=== PATIENT | female | born 1955 | race Caucasian/White ===

== ENCOUNTER 2016-12-03 13:36 | Emergency (ER) | payer MEDICARE, OTHER ==
[2016-12-03 14:09] VITALS: BP 175/63
[2016-12-03 15:14] LABS: CHLORIDE,CL 103 mmol/L (98-107); SODIUM,NA 140 mmol/L (136-145)
[2016-12-03] MEDS ORDERED: Sodium Chloride 0.9% 10 ML Syringe FLUSH PRN (16:28)
[2016-12-03] MEDS ORDERED: Sodium Chloride 0.9% 1,000 ML IV ONE (16:30)
[2016-12-03] MEDS ORDERED: cefTRIAXone 1 GM Vial IVPUSH ONE (16:31)
--- NOTE | 2016-12-04 03:18 | ER ---
Date of Service: 12/03/2016 SUBJECTIVE: Silvia presents to emergency room with complaints of "not feeling well." The patient states that she has also been experiencing some weakness. She has not been experiencing any chest pain or shortness of breath. She recently changed to a different insulin pump, but states that she checked her blood sugar prior to coming to the emergency room and it was 132. She denies any focal neuro symptoms such as numbness or tingling in her extremities, difficulties with speech or ambulation. Her primary complaint is that she just does not "feel right." PAST MEDICAL HISTORY: 1. Type 2 diabetes mellitus. 2. Stage 3 chronic kidney disease. 3. Hypertension. 4. Anxiety. 5. Depression. 6. Chronic pain syndrome. 7. Vitamin D deficiency. 8. Dyslipidemia. MEDICATIONS: 1. Amlodipine. 2. Coenzyme Q10. 3. Pravachol. 4. Nitrostat. 5. Metoprolol tartrate. 6. Cozaar. 7. Lisinopril/hydrochlorothiazide. 8. Humalog. 9. [place]. 10.Hydrochlorothiazide. 11.Docusate sodium. 12.Vitamin D3. 13.Aspirin. 14.Alprazolam. ALLERGIES: Nifedipine, valsartan, and VARGAS inhibitors. REVIEW OF SYSTEMS: General: No fever or chills. HEENT: No sore throat, rhinorrhea, or congestion. Respiratory: No shortness of breath. Cardiac: Denies any substernal chest pain. No jaw, arm, neck, or back pain. GI: No nausea, vomiting, or diarrhea. No melena, hematochezia, or hematemesis. : Denies any dysuria. Musculoskeletal: No myalgias or arthralgias. Neurologic: No fainting, blackouts, or lightheadedness. Again, she does complain of global weakness. PHYSICAL EXAMINATION: General: This is a 61-year-old female patient in no acute distress. Vital Signs: Initially, blood pressure was 175/63, temperature was 36.8, pulse rate is 73, respiratory rate 20, O2 saturations 100%. Skin: Warm, pink, and dry. HEENT. Head is normocephalic, atraumatic. Eyes, PERRLA. Extraocular movements are intact. Ears, TMs are clear. Mouth, oral mucosa is moist. No erythema or exudate noted in the hypopharynx. Neck: Supple. No masses. There is no lymphadenopathy. Lungs: Clear to auscultation. Heart: Regular rate and rhythm. Abdomen: Soft, nontender. There is no hepatosplenomegaly noted. There is no masses noted. Extremities: Without edema. Neurologic: She is alert and oriented, answers all questions appropriately. Her speech is fluent. Her gait is within normal limits. LABORATORY DATA: WBC is 7.3, hemoglobin is 11.3, platelets are 312. Chemistry, sodium is 140, potassium is 4.8, chloride is 103, bicarb is 27, BUN is 31, creatinine is 1.8. GFR is 28. Glucose is 175. Lactic acid is 1.4. Calcium is 9.6, corrected calcium is 9.76. Magnesium is 1.6. Total bilirubin is 0.3. Liver enzymes are all within normal limits. Troponin is less than 0.017. CK-MB is 1.8. C-reactive protein is 2.2. TSH is 0.814. Urinalysis reveals small leukocyte esterase, negative for protein, glucose, ketones, occult blood, negative for nitrites. EMERGENCY ROOM COURSE: IV access was established. The patient was given 1 liter of normal saline. She was also given 1 g of Rocephin IV. She remained stable in my care in the emergency room. ASSESSMENT: 1. Urinary tract infection. 2. Stage 3 chronic kidney disease. PLAN: I did discuss this patient with Chayito Miguel. She did miss her appointment at the clinic yesterday. She was advised to follow up in the clinic within the next 10 to 14 days. She was started on Bactrim DS 1 twice daily for 10 days. Again, she did receive a dose of Rocephin here in the emergency room tonight, so she will not need to fill her prescription till tomorrow. All questions were answered. MWK: 12/03/2016 18:09:39 MODL: 12/04/2016 03:12:02 /[id number]
== END 2016-12-03 18:10 | disposition home or self-care (01) ==
LOC: VM.ED 13:36 → SUPCPDRO 13:36 → VM.ED 18:10
DX: N39.0 Urinary tract infection, site not specified (principal); E11.22 Type 2 diabetes mellitus with diabetic chronic kidney disease; I12.9 Hypertensive chronic kidney disease with stage 1 through stage 4 chronic kidney disease, or unspecified chronic kidney disease; N18.3 Chronic kidney disease, stage 3 (moderate); F41.9 Anxiety disorder, unspecified; F33.9 Major depressive disorder, recurrent, unspecified; G89.4 Chronic pain syndrome; E55.9 Vitamin D deficiency, unspecified; Z96.41 Presence of insulin pump (external) (internal); E78.5 Hyperlipidemia, unspecified; Z79.899 Other long term (current) drug therapy; Z79.4 Long term (current) use of insulin; Z79.82 Long term (current) use of aspirin; Z88.8 Allergy status to other drugs, medicaments and biological substances
CPT/HCPCS: 36415; 71020; 80053; 81001; 82550; 82553; 82962; 83605; 83735; 84443; 84484; 85025; 86140; 87040; 87804; 93005; 96361; 96374; 99285; J0696; J7030; 99284-GF

== ENCOUNTER 2018-01-14 08:30 | Emergency (ER) | payer MEDICARE, OTHER ==
[2018-01-14 08:40] VITALS: BP 172/53
--- NOTE | 2018-01-15 12:32 | EDM.PDOC ---
ED HPI GENERAL MEDICAL PROBLEM - General Chief Complaint: Trauma Stated Complaint: fall Time Seen by Provider: 01/14/18 08:40 Source of Information: Reports: Patient History Limitations: Reports: No Limitations - History of Present Illness INITIAL COMMENTS - FREE TEXT/NARRATIVE: Pt. presents to ER with complaints of lower extremity pain post fall. Pt. states that she fell while walking down some stairs at her [employer]. She did not strike her head when she fell. She complains of pain in her R thigh and both of her lower legs as well as her Onset Date: 01/14/18 Duration: Constant, Getting Worse Location: Reports: Lower Extremity, Left, Lower Extremity, Right Quality: Reports: Ache Severity: Severe Improves with: Reports: Rest Worsens with: Reports: Movement Bilateral Pain Score (Numeric/FACES): 7 - Related Data Allergies Allergy/AdvReac Type Severity Reaction Status Date / Time nifedipine [From Procardia] Allergy Mild Edema Verified 08/22/17 09:23 valsartan [From Diovan] Allergy Mild Cough Verified 08/22/17 09:23 VARGAS Inhibitors Allergy Cannot Verified 08/22/17 09:23 Remember Home Meds: Home Meds ALPRAZolam [Xanax] 0.5 - 1 mg PO BEDTIME PRN 10/11/13 [History] Aspirin [Ecotrin] 325 mg PO DAILY 10/11/13 [History] Cholecalciferol (Vitamin D3) [D-2000] 4,000 unit PO DAILY 10/11/13 [History] Docusate Sodium [Dok] 250 mg PO DAILY 10/11/13 [History] Hydrocodone/Acetaminophen [[place] 10-325] 1 tab PO Q4H PRN 10/11/13 [History] Insulin Lispro [HumaLOG] 100 units IP DAILY 10/11/13 [History] Metoprolol Tartrate 200 mg PO DAILY 10/11/13 [History] Nitroglycerin [Nitrostat] 0.4 mg SL ASDIRECTED PRN 10/11/13 [History] ALPRAZolam [Xanax] 08/22/17 [History] Clopidogrel [Plavix] 08/22/17 [History] Furosemide [Lasix] 08/22/17 [History] Nitrofurantoin Monohyd/M-Cryst [Macrobid 100 mg Capsule] 1 cap PO BID 7 Days # 14 capsule 08/22/17 [Rx] hydrALAZINE [Apresoline] 08/22/17 [History] Past Medical History HEENT History: Reports: Other (See Below) Other HEENT History: diabetic retinopathy Cardiovascular History: Reports: High Cholesterol, Hypertension, GA, Stents Genitourinary History: Reports: Other (See Below) Other Genitourinary History: CKD Neurological History: Reports: Neuropathy, Diabetic Psychiatric History: Reports: Anxiety Endocrine/Metabolic History: Reports: Diabetes, Type I Oncologic (Cancer) History: Reports: Breast - Past Surgical History HEENT Surgical History: Reports: Cataract Surgery Cardiovascular Surgical History: Reports: Coronary Artery Bypass Female Surgical History: Reports: Tubal Ligation Musculoskeletal Surgical History: Reports: Shoulder Surgery Social & Family History - Family History Family Medical History: Noncontributory - Tobacco Use Smoking Status *Q: Unknown Ever Smoked Second Hand Smoke Exposure: No - Caffeine Use Caffeine Use: Reports: None, Soda - Alcohol Use Days Per Week of Alcohol Use: 0 - Recreational Drug Use Recreational Drug Use: No ED ROS GENERAL - Review of Systems Review Of Systems: See Below Constitutional: Reports: No Symptoms HEENT: Reports: No Symptoms Respiratory: Reports: No Symptoms Cardiovascular: Reports: No Symptoms Endocrine: Reports: No Symptoms GI/Abdominal: Reports: No Symptoms : Reports: No Symptoms Musculoskeletal: Reports: Leg Pain Skin: Reports: No Symptoms Neurological: Reports: No Symptoms Psychiatric: Reports: No Symptoms Hematologic/Lymphatic: Reports: No Symptoms Immunologic: Reports: No Symptoms ED EXAM, GENERAL - Physical Exam Exam: See Below Exam Limited By: No Limitations General Appearance: Alert, WD/WN, No Apparent Distress Eye Exam: Bilateral Eye: EOMI, Normal Fundi, Normal Inspection, PERRL Ears: Normal External Exam, Normal Canal, Hearing Grossly Normal, Normal TMs Ear Exam: Bilateral Ear: Auricle Normal, Canal Normal, TM normal Nose: Normal Inspection, Normal Mucosa, No Blood Throat/Mouth: Normal Inspection, Normal Lips, Normal Teeth, Normal Gums, Normal Oropharynx, Normal Voice, No Airway Compromise Head: Atraumatic, Normocephalic Neck: Normal Inspection, Supple, Non-Tender, Full Range of Motion Respiratory/Chest: No Respiratory Distress, Lungs Clear, Normal Breath Sounds, No Accessory Muscle Use, Chest Non-Tender Cardiovascular: Normal Peripheral Pulses, Regular Rate, Rhythm, No Edema, No Gallop, No JVD, No Murmur, No Rub Peripheral Pulses: 4+: Radial (L), Radial (R) GI/Abdominal: Normal Bowel Sounds, Soft, Non-Tender, No Organomegaly, No Distention, No Abnormal Bruit, No Mass (Female) Exam: Deferred Rectal (Female) Exam: Deferred Back Exam: Normal Inspection, Full Range of Motion, NT Extremities: Leg Pain, Limited Range of Motion, Other (Pain to lower legs bilaterally. No deformity or crepitus noted. Pain on movement R ankle. No deformity noted. ROM is normal. No crepitus. Pain to mid portion of R femur. No hip pain. No ecchymosis noted to legs. No deformity or crepitus. Cap. refill is <2sec. Able to bear weight. No shortening or rotation to the legs.) Neurological: Alert, Oriented, CN II-XII Intact, Normal Cognition, Normal Gait, Normal Reflexes, No Motor/Sensory Deficits Psychiatric: Normal Affect, Normal Mood Skin Exam: Warm, Dry, Intact, Normal Color, No Rash Lymphatic: No Adenopathy Course - Vital Signs Last Recorded V/S: Last Vital Signs Temp 37.3 C 01/14/18 08:37 Pulse 66 01/14/18 08:37 Resp 20 01/14/18 08:37 BP 172/53 H 01/14/18 08:37 Pulse Ox 96 01/14/18 08:37 - Radiology Interpretation Free Text/Narrative:: radiographs of bilateral tibia and fibula are negative. radiographs of R femur and R ankle are negative Departure - Departure Time of Disposition: 10:25 Disposition: Home, Self-Care 01 Clinical Impression: Right ankle sprain, Contusion of thigh, right, Lower leg soft tissue injury - Discharge Information Instructions: Contusion, [id number] Referrals: Chayito Miguel DO [Primary Care Provider] - Forms: ED Department Discharge Additional Instructions: Home to rest. May use ice or heat on painful areas. Use your [place] as needed for pain. It is important to stay up and walking as much as possible. Follow-up in clinic in 7-10 days if not gradually improving.
== END 2018-01-14 10:25 | disposition home or self-care (01) ==
LOC: VM.ED 08:30
DX: S93.401A Sprain of unspecified ligament of right ankle, initial encounter (principal); S70.11XA Contusion of right thigh, initial encounter; I10 Essential (primary) hypertension; I25.2 Old myocardial infarction; E10.9 Type 1 diabetes mellitus without complications; Z88.8 Allergy status to other drugs, medicaments and biological substances; Z79.4 Long term (current) use of insulin; Z79.82 Long term (current) use of aspirin; Z79.899 Other long term (current) drug therapy; W10.9XXA Fall (on) (from) unspecified stairs and steps, initial encounter
CPT/HCPCS: 73590-50; 73600-RT; 99284

== ENCOUNTER 2019-04-01 15:27 | Inpatient (IN) | payer MEDICARE, OTHER ==
[2019-04-01] MEDS ORDERED: Diphtheria,Pertussis(Acell),Tetanus Vaccine 0.5 ML Syringe IM ONE (16:36)
[2019-04-01] MEDS ORDERED: Furosemide 40 MG Tab PO PRN (17:02)
[2019-04-01] MEDS ORDERED: Nitroglycerin 0.4 MG Tab.SL SL PRN (17:02)
[2019-04-01] MEDS ORDERED: Non-Formulary Medication 1 Each (Ketoconazole [Nizoral 2% Crm] 1 APPLIC) TOP PRN (17:02)
[2019-04-01] MEDS ORDERED: Hydrocortisone 2.5% Crm 30 GM Tube TOP PRN (17:02)
[2019-04-01] MEDS ORDERED: Glucagon,Human Recombinant 1 MG Vial IM PRN (17:02)
[2019-04-01] MEDS ORDERED: rOPINIRole 0.5 MG Tab PO PRN (17:30)
[2019-04-01] MEDS ORDERED: Ondansetron 4 MG Tab.DIS PO PRN (17:30)
[2019-04-01] MEDS ORDERED: Amoxicillin/Clavulanate K 500-125 MG Tab PO SCH (20:00)
[2019-04-01] MEDS: ALPRAZolam 0.5 MG Tab PO PRN ×2 (20:57→21:07)
[2019-04-01] MEDS: hydrALAZINE 25 MG Tab PO SCH (20:58)
[2019-04-01] MEDS: Acetaminophen/HYDROcodone 325-10 MG Tab PO PRN (20:58)
[2019-04-01] MEDS: Aspirin 81 MG Tab.EC PO SCH (21:00)
[2019-04-01] MEDS: cloNIDine 0.1 MG Tab PO SCH (21:00)
--- NOTE | 2019-04-01 23:11 | HP ---
CHIEF COMPLAINT: Weakness and deconditioning following an acute stay for DKA and acute diastolic heart failure exacerbation and NSTEMI. HISTORY OF PRESENT ILLNESS: This 63-year-old female, who was feeling unwell last Thursday around 03/27/2019, in the morning, had higher blood sugars, finally got medical attention and was found to be in DKA. She was resuscitated with IV fluids. Unfortunately, she developed acute hypoxic respiratory failure requiring ICU and BiPAP. She also has a history of coronary disease and there was concern for some ST depression, so she went to the odd job laborer and she was found to have chronic coronary artery disease and elevated end-diastolic pressures. She was aggressively treated with diuresis and her pulmonary edema resolved. She had a non-STEMI, which was managed conservatively and she will follow up with Cardiology as an outpatient to decide on treatment of her [place] circumflex artery. She also had suspicion due to elevated white count of an aspiration pneumonia. She received IV antibiotics and will receive her last dose of 5-day course with Augmentin tonight. She was able to be weaned off oxygen. She was switched off her insulin drip back to her insulin pump and that is due to be changed tomorrow. She was evaluated by therapy. She had actually increased her walking today, but was needing more help and things with stairs, and it was recommended that she go to a low-intensity therapy setting for further recovery. She comes in today, she wonders about her Lasix. She has been on 20 mg daily, has not required any extra doses. They discharged her on the same doses. Her blood pressure was excellent, 136/67 when she left [place]. Unfortunately, here her blood pressure is elevated at 170/61, but she is feeling fine. She does have some chronic shoulder pain. In fact, a few months ago she was tried on prednisone, but she is no longer taking it. She does chronically take hydrocodone and some Xanax, and the Xanax also helps with that creepy, crawly restless legs syndrome feeling as well. The CABG surgery was in 2012. ALLERGIES: She has allergies to VARGAS inhibitors, Diovan, and Procardia. MEDICATIONS: Her medication list was reviewed and includes Norvasc 10 mg daily; Lipitor 40 mg daily; hydralazine 75 t.i.d.; Toprol 150 daily; Augmentin 500/100, 1 more dose; Requip 0.25 t.i.d. as needed for restless legs; insulin through the insulin pump, she has used Tarceva or Lantus for pump failure in the past; B12 is 1000 mcg injected once a month; hydrocortisone cream; ketoconazole cream; Xanax 0.5 mg 1 to 2 tablets at bedtime as needed for restless leg and may take an extra 1/2 every 6 hours as needed; clonidine 0.1 mg at bedtime; Plavix 75 mg daily; Lasix 20 mg daily and 40 mg as needed for fluid retention; glucagon if needed; nitroglycerin p.r.n.; Zofran p.r.n.; aspirin is 81 mg daily. It should be noted that during her stay, the patient was unable to always manage her pump and did have to get subcu insulin due to her acute illness. Her overall sensitivity is 35. She has 1 unit per 6 carb grams in the a.m., 1 unit per 5 g at noon, and 1 unit per 4 g at 6, and 1 unit per 5 g at 9 p.m., and her basal rates are in the 0.95 to 1.8 per hour. She has a [employer] 630G pump. PAST MEDICAL HISTORY: The patient's past medical history is quite complicated, includes: 1. Coronary artery disease with stenting back in 1995 to the left circ, bypassed x4, and the past DUBOIS to the LAD, DUBOIS to saphenous vein graft, to diagonal, obtuse marginal, and PDA. Stent to the proximal circ and mid RCA in 2014, and prefers her to remain on Plavix indefinitely. 2. Chronic kidney disease stage 3, baseline 1.5 to 1.7. The patient's creatinine today was 1.8. 3. History of UTI. 4. Chronic diastolic heart failure. EF recently checked on admission to [place] on 03/28/2019 was 70%. 5. She has longstanding type 1 brittle diabetes since age 9. 6. She has retinopathy, neuropathy, and nephropathy with type 4 RTA. She is on an insulin pump. 7. History of breast cancer. 8. B12 deficiency. 9. Chronic anemia likely due to chronic disease. 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 11.Hyperlipidemia. 12.Essential hypertension. 13.Opioid dependence. She has been on hydrocodone for the shoulder pain and restless legs. 14.Osteoporosis. 15.Osteoarthritis. 16.Restless legs. 17.Squamous cell skin cancer of the skin. 18.Goiter of the thyroid. 19.Vitamin D deficiency. PAST SURGICAL HISTORY: She has had bypass surgery on the heart in 2013, tubal ligation, trigger finger release, eye surgeries are multiple, bilateral mastectomy, right arm fracture surgery, , cataracts. SOCIAL HISTORY: The patient is . She has 1 son. She lives independently. 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 FAMILY HISTORY: Both parents are . They had diabetes and hypertension. REVIEW OF SYSTEMS: General: The patient is unaware of any weight changes. No fever. No chills. HEENT: No trouble swallowing. Cardiac: No chest pain. No palpitations or shortness of breath. Respiratory: No cough. Abdominal: No nausea, vomiting, or diarrhea. However, she has been constipated, feels she needs to go. Extremities. She is not having any edema. She has some chronic shoulder pain. Mental Status: She does not have any confusion, no mood changes. Otherwise, all systems reviewed and found to be negative unless otherwise stated. PHYSICAL EXAMINATION: Vital Signs: The patient's weight is 82.1 kg, temperature 98.2, pulse 89, blood pressure 170/61, respiratory rate is 20, and O2 of 97% on room air. General: She is in no acute distress. Heart: Regular rate and rhythm with soft murmur noted. Lungs: Lung sounds are clear to auscultation bilaterally without crackles or wheezes. Abdomen: Positive bowel sounds. Soft, nondistended, nontender. Extremities: Warm and dry. No edema. Mental Status: She is alert. She is orientated x3. She is answering questions appropriately. LABORATORY DATA: Lab work from this morning: Blood sugar 189, creatinine 1.8. Otherwise, everything looked okay. Blood sugar before she left was 232. Her magnesium was also normal today at 2.2. Hemoglobin was checked yesterday and was 10.7, which was stable. White count had improved from 15.8 to 6. She was getting heparin there for DVT prophylaxis and her platelet count was 291. ASSESSMENT AND PLAN: 1. Deconditioning due to stay for diabetic ketoacidosis, acute hypoxic respiratory failure, non-STEMI and heart failure exacerbation. The patient will be evaluated by therapies. Anticipate she will need a short stay. She will improve mobility and do the stairs before going home. 2. Type 1 diabetes with recent diabetic ketoacidosis. Her diabetes has been rather uncontrolled. She had just switched to a new pump. It sounds like some of the recent issues might be just getting used to that. We will get her on her regimen. She is already met with the perinatal educator in [place]. If this pump fails or has problems, we will switch her over to basal bolus. She will need at least probably 35 units of Lantus or Levemir. Her last A1c was actually 7.8 in December. 3. Non TG-xzwxyswxn-wyjexnlsqr infarction with known coronary artery disease. She will have outpatient followup with Cardiology. She is currently not having any symptoms. 4. Chronic diastolic heart failure, stable. We will keep her on the same doses of Lasix. 5. Essential hypertension. Blood pressures are elevated. I think this will improve after she gets settled in and gets her pain pill. 6. Chronic shoulder pain and restless legs. We will continue her home medications. 7. Aspiration pneumonia. She will get her last dose of Augmentin tonight. 8. CKD 3 we will monitor labs, repeat Thursday PLAN: At this point, patient will be on swing bed for further therapies. No further DVT prophylaxis ordered other than up in the halls t.i.d. I anticipate this will be a short rehab stay. All questions were answered. Code level 1 MKA: 04/01/2019 17:34:44 MODL: 04/01/2019 23:04:00 /[id number] REMA
[2019-04-02] MEDS: INSULIN ASPART IN PRN ×5 (02:50→17:00)
[2019-04-02] MEDS: Acetaminophen/HYDROcodone 325-10 MG Tab PO PRN ×3 (02:56→19:44)
[2019-04-02] MEDS ORDERED: predniSONE 10 MG Tab PO SCH (08:00)
[2019-04-02] MEDS ORDERED: amLODIPine 10 MG Tab PO SCH (08:00)
[2019-04-02] MEDS: Furosemide 20 MG Tab PO SCH (08:17)
[2019-04-02] MEDS: Metoprolol Succinate 50 MG Tab.ER PO SCH (08:17)
[2019-04-02] MEDS: hydrALAZINE 25 MG Tab PO SCH ×3 (08:17→19:43)
[2019-04-02] MEDS: Clopidogrel 75 MG Tab PO SCH (08:17)
[2019-04-02] MEDS: atorvaSTATin 40 MG Tab PO SCH (08:17)
[2019-04-02] MEDS: INSULIN ASPART IN SCH (08:22)
[2019-04-02] MEDS: cloNIDine 0.1 MG Tab PO SCH (19:45)
[2019-04-02] MEDS: Aspirin 81 MG Tab.EC PO SCH (19:45)
[2019-04-02] MEDS: ALPRAZolam 0.5 MG Tab PO PRN (21:37)
[2019-04-03] MEDS: Acetaminophen/HYDROcodone 325-10 MG Tab PO PRN ×3 (01:46→20:11)
[2019-04-03] MEDS: Metoprolol Succinate 50 MG Tab.ER PO SCH (07:36)
[2019-04-03] MEDS: Furosemide 20 MG Tab PO SCH (07:38)
[2019-04-03] MEDS: hydrALAZINE 25 MG Tab PO SCH ×3 (07:38→20:10)
[2019-04-03] MEDS: Clopidogrel 75 MG Tab PO SCH (07:38)
[2019-04-03] MEDS: atorvaSTATin 40 MG Tab PO SCH ×2 (07:38→21:06)
[2019-04-03] MEDS: INSULIN ASPART IN SCH (09:26)
[2019-04-03] MEDS: INSULIN ASPART IN PRN ×2 (12:00→17:56)
[2019-04-03] MEDS: cloNIDine 0.1 MG Tab PO SCH (20:11)
[2019-04-03] MEDS: Aspirin 81 MG Tab.EC PO SCH (20:11)
[2019-04-03] MEDS: ALPRAZolam 0.5 MG Tab PO PRN (23:02)
[2019-04-04] MEDS: Acetaminophen/HYDROcodone 325-10 MG Tab PO PRN ×4 (01:06→19:45)
[2019-04-04 07:17] LABS: ANION GAP 13.3 mmol/L (10-20)
[2019-04-04] MEDS: hydrALAZINE 25 MG Tab PO SCH ×3 (07:50→19:47)
[2019-04-04] MEDS: Clopidogrel 75 MG Tab PO SCH (07:50)
[2019-04-04] MEDS: Furosemide 20 MG Tab PO SCH (07:50)
[2019-04-04] MEDS: Metoprolol Succinate 50 MG Tab.ER PO SCH (07:51)
[2019-04-04] MEDS: INSULIN ASPART IN PRN (07:52)
[2019-04-04] MEDS: INSULIN ASPART IN SCH (08:51)
[2019-04-04] MEDS: ALPRAZolam 0.5 MG Tab PO PRN (19:45)
[2019-04-04] MEDS: Aspirin 81 MG Tab.EC PO SCH (19:45)
[2019-04-04] MEDS: cloNIDine 0.1 MG Tab PO SCH (19:46)
[2019-04-04] MEDS: atorvaSTATin 40 MG Tab PO SCH (19:46)
[2019-04-05] MEDS: Acetaminophen/HYDROcodone 325-10 MG Tab PO PRN ×5 (01:18→23:22)
[2019-04-05] MEDS: ALPRAZolam 0.5 MG Tab PO PRN ×2 (01:19→23:24)
[2019-04-05] MEDS: Metoprolol Succinate 50 MG Tab.ER PO SCH (08:01)
[2019-04-05] MEDS: Furosemide 20 MG Tab PO SCH (08:03)
[2019-04-05] MEDS: hydrALAZINE 25 MG Tab PO SCH ×3 (08:03→20:16)
[2019-04-05] MEDS: Clopidogrel 75 MG Tab PO SCH (08:03)
[2019-04-05] MEDS: INSULIN ASPART IN SCH (08:06)
[2019-04-05] MEDS: INSULIN ASPART IN PRN (08:07)
[2019-04-05] MEDS: atorvaSTATin 40 MG Tab PO SCH (20:16)
[2019-04-05] MEDS: cloNIDine 0.1 MG Tab PO SCH (20:17)
[2019-04-05] MEDS: Aspirin 81 MG Tab.EC PO SCH (20:17)
[2019-04-06] MEDS: Acetaminophen/HYDROcodone 325-10 MG Tab PO PRN ×4 (03:55→20:11)
[2019-04-06] MEDS: INSULIN ASPART IN PRN ×5 (08:00→20:42)
[2019-04-06] MEDS: hydrALAZINE 25 MG Tab PO SCH ×3 (08:04→20:13)
[2019-04-06] MEDS: Clopidogrel 75 MG Tab PO SCH (08:04)
[2019-04-06] MEDS: Metoprolol Succinate 50 MG Tab.ER PO SCH (08:04)
[2019-04-06] MEDS: Furosemide 20 MG Tab PO SCH (08:04)
[2019-04-06] MEDS: INSULIN ASPART IN SCH (08:05)
[2019-04-06] MEDS: Aspirin 81 MG Tab.EC PO SCH (20:12)
[2019-04-06] MEDS: atorvaSTATin 40 MG Tab PO SCH (20:12)
[2019-04-06] MEDS: cloNIDine 0.1 MG Tab PO SCH (20:13)
[2019-04-06] MEDS: ALPRAZolam 0.5 MG Tab PO PRN (22:56)
[2019-04-07] MEDS: Acetaminophen/HYDROcodone 325-10 MG Tab PO PRN ×5 (00:41→21:28)
[2019-04-07] MEDS: Furosemide 20 MG Tab PO SCH (08:57)
[2019-04-07] MEDS: Metoprolol Succinate 50 MG Tab.ER PO SCH (08:57)
[2019-04-07] MEDS: Clopidogrel 75 MG Tab PO SCH (08:57)
[2019-04-07] MEDS: INSULIN ASPART IN SCH (09:03)
[2019-04-07] MEDS: hydrALAZINE 25 MG Tab PO SCH ×3 (09:03→20:07)
[2019-04-07] MEDS ORDERED: Diphtheria,Pertussis(Acell),Tetanus Vaccine 0.5 ML Syringe IM ONE (10:00)
[2019-04-07] MEDS: Aspirin 81 MG Tab.EC PO SCH (20:07)
[2019-04-07] MEDS: cloNIDine 0.1 MG Tab PO SCH (20:07)
[2019-04-07] MEDS: atorvaSTATin 40 MG Tab PO SCH (20:07)
[2019-04-07] MEDS: ALPRAZolam 0.5 MG Tab PO PRN (23:11)
[2019-04-08] MEDS: Acetaminophen/HYDROcodone 325-10 MG Tab PO PRN ×2 (02:01→10:15)
[2019-04-08] MEDS: Furosemide 20 MG Tab PO SCH (07:50)
[2019-04-08] MEDS: Clopidogrel 75 MG Tab PO SCH (07:50)
[2019-04-08] MEDS: Metoprolol Succinate 50 MG Tab.ER PO SCH (07:51)
[2019-04-08 07:56] VITALS: PULSE 64
[2019-04-08] MEDS: INSULIN ASPART IN SCH (07:57)
[2019-04-08] MEDS: hydrALAZINE 25 MG Tab PO SCH ×2 (07:58→11:39)
[2019-04-08 11:44] VITALS: BP 154/66
--- NOTE | 2019-04-08 14:07 | DISCH ---
PRIMARY DISCHARGE DIAGNOSES: 1. Need for further physical therapy after an acute stay for diabetic ketoacidosis. 2. Acute diastolic heart failure exacerbation. 3. [id number] myocardial infarction. SECONDARY DISCHARGE DIAGNOSES: 1. Known coronary artery disease. 2. Essential hypertension, under poor control due to being off amlodipine. 3. Chronic kidney disease stage 3. Baseline around 1.5 to 1.7. It was 1.9 here, 1.8 prior to coming. 4. History of aspiration pneumonia, treated with Augmentin during her acute hospital stay. 5. Chronic diastolic heart failure, EF 70%. She is on Lasix 20 mg daily and did not require extra doses here. 6. Longstanding type 1 brittle diabetes with complications of retinopathy, neuropathy, nephropathy, and type 4 renal tubular acidosis on an insulin pump and long-term insulin. Blood sugars controlled during her stay, only 1 low due to eating less. 7. History of breast cancer. 8. B12 deficiency. 9. Chronic anemia likely due to chronic disease with hemoglobin at 10.7 during her stay here. 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 11.Hyperlipidemia. 12.Opioid dependence. 13.Anxiety and restless legs. 14.Osteoporosis. 15.History of skin cancer, squamous cell. 16.Thyroid goiter. 17.Vitamin D deficiency. REASON FOR ADMISSION: On the date of admission, this 63-year-old female was transferred from [place] for further therapies. She was managed with 4 times a day blood sugar checks. Most of her readings were in the 150s to 200 range. She did have a 57 last night after eating supper before bedtime and did get some snacks. She was back up to 200 this morning. She has been feeling well, still having some leg weakness, but gaining strength. Blood pressures have been high up into the 180s/75 and then down to 156/52 this morning. She has not had any shortness of breath. No fluid retention. Weight is down even a couple pounds here. She has not had any chest pain. PHYSICAL EXAMINATION: Vital Signs: On the date of discharge, her weight was 79.7 pounds, pulse 64, blood pressure 156/52, respiratory rate 18, O2 of 99% on room air. General: She is in no acute distress. Heart: Regular rate and rhythm with murmur. Lungs: Lung sounds are clear to auscultation bilaterally without crackles or wheezes. Abdomen: Positive bowel sounds. Soft and nontender. Extremities: Warm and dry. There is no edema. Mental Status: She is alert. She is orientated x3. DISCHARGE PLANS/INSTRUCTIONS: The patient will follow up with Dr. Miguel in the clinic in 2 weeks' time. She will have lab work with a BMP, CBC, and ferritin. Prior to that visit, she will resume her home Norvasc. She will be on Home Health as well for the next couple of weeks. [id number]-[id number] encounter occurred for Home Health on 04/08/2019. Primary need for home health is a recent admission for DKA and a new onset of diastolic heart failure, need for monitoring of vitals and med changes along with PT for her weakness and deconditioning. To need further support to maintain independence in her home. She is homebound due to her neuropathy and uncontrolled blood sugars with concern for hypoglycemia currently due to her new pump; therefore, needs the assistance of another person to leave her home. I will periodically review this plan of care. MKA: 04/08/2019 10:34:41 MODL: 04/08/2019 13:57:58 /[id number]
[2019-05-01] MEDS ORDERED: Cyanocobalamin (Vitamin B12) 1,000 MCG/ML SDV IM SCH (09:00)
== END 2019-04-08 14:15 | disposition home health service (06) | DRG 947 ==
LOC: VM.MS 16:16
PROVIDERS: ADMIT Internal Medicine; ATTEND Internal Medicine
DX: R53.1 Weakness (principal); I21.4 Non-ST elevation (NSTEMI) myocardial infarction; I13.0 Hypertensive heart and chronic kidney disease with heart failure and stage 1 through stage 4 chronic kidney disease, or unspecified chronic kidney disease; I50.32 Chronic diastolic (congestive) heart failure; F11.20 Opioid dependence, uncomplicated; I25.10 Atherosclerotic heart disease of native coronary artery without angina pectoris; N18.3 Chronic kidney disease, stage 3 (moderate); Z95.1 Presence of aortocoronary bypass graft; Z95.5 Presence of coronary angioplasty implant and graft; E10.21 Type 1 diabetes mellitus with diabetic nephropathy; E10.40 Type 1 diabetes mellitus with diabetic neuropathy, unspecified; E10.319 Type 1 diabetes mellitus with unspecified diabetic retinopathy without macular edema; Z96.41 Presence of insulin pump (external) (internal); E10.22 Type 1 diabetes mellitus with diabetic chronic kidney disease; Z85.3 Personal history of malignant neoplasm of breast; D63.8 Anemia in other chronic diseases classified elsewhere; E53.8 Deficiency of other specified B group vitamins; G89.29 Other chronic pain; M12.9 Arthropathy, unspecified; E78.5 Hyperlipidemia, unspecified; F41.9 Anxiety disorder, unspecified; G25.81 Restless legs syndrome; M81.0 Age-related osteoporosis without current pathological fracture; E55.9 Vitamin D deficiency, unspecified; Z85.828 Personal history of other malignant neoplasm of skin; E04.9 Nontoxic goiter, unspecified; Z88.8 Allergy status to other drugs, medicaments and biological substances; Z79.02 Long term (current) use of antithrombotics/antiplatelets; Z79.82 Long term (current) use of aspirin; Z79.4 Long term (current) use of insulin; Z79.899 Other long term (current) drug therapy
CPT/HCPCS: 36415; 80048; 82962; 85025; 90471; 90715; 97110-GP; 97116-GP; 97162-GP; 97165-GO; A9270-GY

== ENCOUNTER 2021-07-08 20:42 | Emergency (ER) | payer MEDICARE, OTHER ==
[2021-07-08 21:11] LABS: CHLORIDE,CL 102 mmol/L (98-107); SODIUM,NA 138 mmol/L (136-145)
[2021-07-08 21:12] LABS: ANION GAP 15.7 mmol/L (5-15)
--- NOTE | 2021-07-08 21:22 | EDM.PDOC ---
ED HPI GENERAL MEDICAL PROBLEM - General Stated Complaint: FELL,HURT SHOULDER,HIT HEAD/CONFUSION Time Seen by Provider: 07/08/21 20:45 Source of Information: Reports: Patient History Limitations: Reports: No Limitations - History of Present Illness INITIAL COMMENTS - FREE TEXT/NARRATIVE: Patient presents to the ED for confused episode and right shoulder pain. She lives home alone. She states she was changing the battery and the tubing on her insulin pump at the table and remember noting that she put the battery door on too tight. next thing she recalls in sitting on the floor. She managed to call a family member and they were there within 30 minutes to help her up. She states she has a cushion on the spot she was sitting and this frequently slips off. She was on the floor with it. Did not hit her head, is on a blood thinner did not have dizziness or chest pain prior or after. does have some right shoulder pain worse than usual Onset: Today, Sudden Duration: Resolved Prior to Arrival Location: Reports: Upper Extremity, Right - Related Data Allergies Allergy/AdvReac Type Severity Reaction Status Date / Time nifedipine [From Procardia] Allergy Mild Edema Verified 04/01/19 16:33 valsartan [From Diovan] Allergy Mild Cough Verified 04/01/19 16:33 VARGAS Inhibitors Allergy Cannot Verified 04/01/19 16:33 Remember Home Meds: Home Meds Hydrocodone/Acetaminophen [Gravette 10-325] 1 tab PO Q4H PRN 10/11/13 [History] Nitroglycerin [Nitrostat] 0.4 mg SL ASDIRECTED PRN 10/11/13 [History] Clopidogrel [Plavix] 75 mg PO DAILY 08/22/17 [History] Furosemide [Lasix] 20 mg PO DAILY 08/22/17 [History] hydrALAZINE [Apresoline] 75 mg PO TID 08/22/17 [History] ALPRAZolam [Alprazolam] 0.25 mg PO Q6H PRN 04/01/19 [History] ALPRAZolam [Alprazolam] 0.5 - 1 mg PO BEDTIME PRN 04/01/19 [History] Aspirin [Halfprin] 81 mg PO BEDTIME 04/01/19 [History] Cyanocobalamin (Vitamin B-12) [Cyanocobalamin Injection] 1,000 mcg IM Q30D 04/01/19 [History] Furosemide 40 mg PO DAILY PRN 04/01/19 [History] Glucagon,Human Recombinant [Glucagon Emergency Kit] 1 mg IM ASDIRECTED PRN 04/01/19 [History] Hydrocortisone [Hydrocortisone 2.5% Crm] 1 applic TOP BID PRN 04/01/19 [History] Insulin Aspart [NovoLOG] 100 units IN DAILY 04/01/19 [History] Insulin Glarg,Human.Rec.Analog [Lantus Solostar] 35 units SQ DAILY PRN 04/01/19 [History] Ketoconazole [Nizoral 2% Crm] 1 applic TOP BID PRN 04/01/19 [History] Metoprolol Succinate 150 mg PO DAILY 04/01/19 [History] Ondansetron [Zofran] 4 mg PO TID PRN 04/01/19 [History] amLODIPine [Norvasc] 10 mg PO DAILY 04/01/19 [History] atorvaSTATin Calcium [Lipitor] 40 mg PO DAILY 04/01/19 [History] cloNIDine [Catapres] 0.1 mg PO BEDTIME 04/01/19 [History] rOPINIRole HCl [Requip] 0.25 mg PO TID PRN 04/01/19 [History] cephALEXin [Keflex] 500 mg PO Q8H 5 Days #15 cap 07/08/21 [Rx] Past Medical History HEENT History: Reports: Other (See Below) Other HEENT History: diabetic retinopathy Cardiovascular History: Reports: High Cholesterol, Hypertension, MD, Stents Gastrointestinal History: Reports: None Genitourinary History: Reports: Diabetic Nephropathy, Renal Disease, Other (See Below) Other Genitourinary History: CKD Neurological History: Reports: Neuropathy, Diabetic Psychiatric History: Reports: Anxiety Endocrine/Metabolic History: Reports: Diabetes, Type I Hematologic History: Reports: Anemia Oncologic (Cancer) History: Reports: Breast Dermatologic History: Reports: Eczema - Past Surgical History HEENT Surgical History: Reports: Cataract Surgery Cardiovascular Surgical History: Reports: Coronary Artery Bypass Respiratory Surgical History: Reports: None GI Surgical History: Reports: None Female Surgical History: Reports: Breast Reduction, Tubal Ligation Musculoskeletal Surgical History: Reports: Shoulder Surgery Social & Family History - Family History Family Medical History: No Pertinent Family History Cardiac: Reports: Hypertension Other Cardiac Family History: Both parent. Neurological: Reports: Neuropathy, Diabetic Other Neurological Family History: Mother. Endocrine/Metabolic: Reports: Diabetes, type II - Caffeine Use Caffeine Use: Reports: Other Other Caffeine Use: Diet coke. ED ROS GENERAL - Review of Systems Review Of Systems: See Below Constitutional: Reports: No Symptoms HEENT: Reports: No Symptoms Respiratory: Reports: No Symptoms Cardiovascular: Reports: No Symptoms Endocrine: Reports: No Symptoms GI/Abdominal: Reports: No Symptoms : Reports: No Symptoms Musculoskeletal: Reports: Joint Pain (right shoulder) Immunologic: Reports: No Symptoms ED EXAM, GENERAL - Physical Exam Exam: See Below Exam Limited By: No Limitations General Appearance: Alert, WD/WN, No Apparent Distress Eye Exam: Bilateral Eye: EOMI, Normal Inspection, PERRL Ears: Normal External Exam, Normal Canal, Normal TMs Nose: Normal Inspection, Normal Mucosa, No Blood Throat/Mouth: Normal Inspection, Normal Lips, Normal Teeth, Normal Voice, No Airway Compromise Head: Atraumatic Neck: Normal Inspection, Supple, Non-Tender, Full Range of Motion Respiratory/Chest: No Respiratory Distress, Lungs Clear, Normal Breath Sounds, Chest Non-Tender Cardiovascular: Normal Peripheral Pulses, Regular Rate, Rhythm, No Edema, No Murmur, No Rub GI/Abdominal: Normal Bowel Sounds, Soft, Non-Tender, No Organomegaly, No Abnormal Bruit Back Exam: Normal Inspection Extremities: Normal Inspection, Normal Capillary Refill, Other (minimal tendnernes of the right shoulder with movement. no tenderness to palpation) Neurological: Alert, Oriented, CN II-XII Intact, Normal Cognition Psychiatric: Normal Affect #1 Interpretation EKG Date: 07/08/21 Time: 20:48 Rhythm: NSR Rate (Beats/Min): 77 [place]: Normal P-Wave: Present ST-T: Other (unchanged from previous) Comparison: No Change Course - Orders/Labs/Meds Orders: Active Orders 24 hr Category Date Time Status EKG Documentation Completion [RC] STAT Care 07/08/21 20:36 Active Head wo Cont [CT] Stat Exams 07/08/21 20:36 Ordered Shoulder Comp Rt [CR] Stat Exams 07/08/21 20:36 Ordered CULTURE URINE [RM] Stat Lab 07/08/21 21:17 Received Acetaminophen/HYDROcodone [Gravette 325-10 MG] Med 07/08/21 22:14 Once 1 tab PO ONETIME ONE Labs: Laboratory Tests 1007/08/21 07/08/21 Range/Units 20:33 20:46 20:46 WBC 10.1 H (4.0-10.0) x10^3/uL RBC 3.86 L (4.00-5.50) x10^6/uL Hgb 11.9 L (12.0-16.0) g/dL Hct 35.3 (33.0-47.0) % MCV 91.5 (78.0-93.0) fL MCH 30.8 (26.0-32.0) pg MCHC 33.7 (32.0-36.0) g/dL RDW Coeff of En 14.0 (10.0-15.0) % Plt Count 361 (130-400) x10^3/uL Immature Gran % (Auto) 0.40 (0.00-0.43) % Neut % (Auto) 81.1 H (50.0-80.0) % Lymph % (Auto) 7.5 L (25.0-50.0) % [place] % (Auto) 8.7 (2.0-11.0) % Eos % (Auto) 1.6 (0.0-4.0) % Baso % (Auto) 0.7 (0.2-1.2) % Neut # (Auto) 8.2 H (1.8-7.7) x10^3/uL Lymph # (Auto) 0.8 L (1.0-4.8) x10^3/uL [place] # (Auto) 0.9 H (0.0-0.8) x10^3/uL Eos # (Auto) 0.2 (0.0-0.5) x10^3/uL Baso # (Auto) 0.1 (0.0-0.2) x10^3/uL Immature Gran # (Auto) 0.04 (0.00-0.07) x10^3/uL Sodium 138 (136-145) mmol/L Potassium 3.7 (3.5-5.1) mmol/L Chloride 102 (98-107) mmol/L Carbon Dioxide 24 (21-32) mmol/L Anion Gap 15.7 H (5-15) mmol/L BUN 33 H (7-18) mg/dL Creatinine 1.7 H (0.55-1.02) mg/dL Est Cr Clr Drug Dosing TNP Estimated GFR (MDRD) 30 Glucose 241 H (70-99) mg/dL POC Glucose 233 H (70-99) mg/dL Calcium 9.1 (8.5-10.1) mg/dL Corrected Calcium 9.6 (8.5-10.1) mg/dL Total Bilirubin 0.5 (0.2-1.0) mg/dL AST 21 (15-37) U/L ALT 16 (14-59) U/L Alkaline Phosphatase 125 H (46-116) U/L Troponin I High Sens 14 (<=51) ng/L Total Protein 8.4 H (6.4-8.2) g/dL Albumin 3.4 (3.4-5.0) g/dL Globulin 5.0 Albumin/Globulin Ratio 0.68 Urine Color (YELLOW) Urine Appearance (CLEAR) Urine pH (5.0-8.0) Ur Specific [place] Urine Protein (NEGATIVE) mg/dL Urine Glucose (UA) (NEGATIVE) mg/dL Urine Ketones (NEGATIVE) mg/dL Urine Occult Blood (NEGATIVE) Urine Nitrite (NEGATIVE) Urine Bilirubin (NEGATIVE) Urine Urobilinogen (0.2) EU/dL Ur Leukocyte Esterase (NEGATIVE) Urine RBC (NOT SEEN) /HPF Urine WBC (NOT SEEN) /HPF Ur Squamous Epith Cells (NOT SEEN) /HPF Amorphous Sediment Urine Bacteria (NOT SEEN) /HPF Urine Mucus (NOT SEEN) /LPF 07/08/21 Range/Units 21:17 WBC (4.0-10.0) x10^3/uL RBC (4.00-5.50) x10^6/uL Hgb (12.0-16.0) g/dL Hct (33.0-47.0) % MCV (78.0-93.0) fL MCH (26.0-32.0) pg MCHC (32.0-36.0) g/dL RDW Coeff of En (10.0-15.0) % Plt Count (130-400) x10^3/uL Immature Gran % (Auto) (0.00-0.43) % Neut % (Auto) (50.0-80.0) % Lymph % (Auto) (25.0-50.0) % [place] % (Auto) (2.0-11.0) % Eos % (Auto) (0.0-4.0) % Baso % (Auto) (0.2-1.2) % Neut # (Auto) (1.8-7.7) x10^3/uL Lymph # (Auto) (1.0-4.8) x10^3/uL [place] # (Auto) (0.0-0.8) x10^3/uL Eos # (Auto) (0.0-0.5) x10^3/uL Baso # (Auto) (0.0-0.2) x10^3/uL Immature Gran # (Auto) (0.00-0.07) x10^3/uL Sodium (136-145) mmol/L Potassium (3.5-5.1) mmol/L Chloride (98-107) mmol/L Carbon Dioxide (21-32) mmol/L Anion Gap (5-15) mmol/L BUN (7-18) mg/dL Creatinine (0.55-1.02) mg/dL Est Cr Clr Drug Dosing Estimated GFR (MDRD) Glucose (70-99) mg/dL POC Glucose (70-99) mg/dL Calcium (8.5-10.1) mg/dL Corrected Calcium (8.5-10.1) mg/dL Total Bilirubin (0.2-1.0) mg/dL AST (15-37) U/L ALT (14-59) U/L Alkaline Phosphatase (46-116) U/L Troponin I High Sens (<=51) ng/L Total Protein (6.4-8.2) g/dL Albumin (3.4-5.0) g/dL Globulin Albumin/Globulin Ratio Urine Color Yellow (YELLOW) Urine Appearance Cloudy H (CLEAR) Urine pH 5.5 (5.0-8.0) Ur Specific [place] 1.020 Urine Protein 30 H (NEGATIVE) mg/dL Urine Glucose (UA) Negative (NEGATIVE) mg/dL Urine Ketones Negative (NEGATIVE) mg/dL Urine Occult Blood Trace-intact H (NEGATIVE) Urine Nitrite Negative (NEGATIVE) Urine Bilirubin Negative (NEGATIVE) Urine Urobilinogen 0.2 (0.2) EU/dL Ur Leukocyte Esterase Large H (NEGATIVE) Urine RBC 5-10 H (NOT SEEN) /HPF Urine WBC >100 H (NOT SEEN) /HPF Ur Squamous Epith Cells Occasional H (NOT SEEN) /HPF Amorphous Sediment Few Urine Bacteria Moderate H (NOT SEEN) /HPF Urine Mucus Occasional H (NOT SEEN) /LPF Meds: Medications Discontinued Medications Generic Name Dose Route Start Last Admin Trade Name Ricq PRN Reason Stop Dose Admin Cephalexin 500 mg 07/08/21 21:32 Cephalexin 500 Mg Cap PO 07/08/21 21:33 ONETIME ONE - Radiology Interpretation Free Text/Narrative:: x-ray of the shoulder without acute changes. CT of head without acute changes. chronic microvascular changes see report - Re-Assessments/Exams Free Text/Narrative Re-Assessment/Exam: 07/08/21 21:30 will check labs, urine, ekg, head ct, shoulder x-ray. patient is alert, displays capacity,. no focal neurological defects 07/08/21 21:33 Has a uti, culture pending. Will give tablet of Keflex 500 mg here, send on script, rest of labs normal. Had a uti about a month ago and amoxicillin worked for this Awaiting imaging 07/08/21 21:37 asked for a tablet of hydrocodone that she usually takes at home. given 07/08/21 22:29 discharge home. no acute findings other than uti Departure - Departure Time of Disposition: 22:31 Disposition: Home, Self-Care 01 Clinical Impression: Weakness, Shoulder pain UTI (urinary tract infection) Qualifiers: Urinary tract infection type: acute cystitis Hematuria presence: with hematuria Qualified Code(s): N30.01 - Acute cystitis with hematuria - Discharge Information *PRESCRIPTION DRUG MONITORING PROGRAM REVIEWED*: Not Applicable *COPY OF PRESCRIPTION DRUG MONITORING REPORT IN PATIENT DOT: Not Applicable Prescriptions: cephALEXin [Keflex] 500 mg PO Q8H 5 Days #15 cap Instructions: Shoulder Pain, [id number], Urinary Tract Infection, Adult, [id number] Additional Instructions: You were given a does of keflex in the ER. Start your prescription tomorrow, Urine culture is pending and you will be notified about needs for changes in your antibiotics. The rest of your testing was normal - My Orders Last 24 Hours: My Active Orders 07/08/21 20:36 EKG Documentation Completion [RC] STAT Head wo Cont [CT] Stat Shoulder Comp Rt [CR] Stat 07/08/21 21:17 CULTURE URINE [RM] Stat 07/08/21 22:14 Acetaminophen/HYDROcodone [Gravette 325-10 MG] 1 tab PO ONETIME ONE - Assessment/Plan Last 24 Hours: My Active Orders 07/08/21 20:36 EKG Documentation Completion [RC] STAT Head wo Cont [CT] Stat Shoulder Comp Rt [CR] Stat 07/08/21 21:17 CULTURE URINE [RM] Stat 07/08/21 22:14 Acetaminophen/HYDROcodone [Gravette 325-10 MG] 1 tab PO ONETIME ONE
[2021-07-08] MEDS ORDERED: Cephalexin 500 MG Cap PO ONE (21:32)
[2021-07-08] MEDS ORDERED: Acetaminophen/HYDROcodone 325-10 MG Tab PO ONE (22:14)
[2021-07-08 22:26] VITALS: BP 194/61; PULSE 88
--- NOTE | 2021-07-09 07:34 | CR ---
[id number] RAD/RAD Shoulder Right 2V Min EXAM: RAD Shoulder Right 2V Min CLINICAL DATA: TRAUMA COMPARISON: No previous similar exam is available. FINDINGS: No fracture or dislocation is seen. There is no radiopaque foreign body in the soft tissues. There is no air in the soft tissues. There is no cortical thickening or periosteal reaction either. IMPRESSION: NEGATIVE PLAIN FILM EXAM. Angel Hein MD 07/09/21 0733 Thank you for allowing us to participate in the care of your patient.
--- NOTE | 2021-07-09 07:36 | CT ---
[id number] CT/CT Head WO IV EXAM: CT Head WO IV CLINICAL DATA: TRAUMA COMPARISON: No previous similar exam is available for comparison. FINDINGS: There is no mass or mass effect. There is no hemorrhage or hydrocephalus. There are no extra-axial fluid collections. There are no sites of abnormal attenuation. IMPRESSION: NO PLAIN CT EVIDENCE OF ACUTE INTRACRANIAL PROCESS. Angel Hein MD 07/09/21 0735 Thank you for allowing us to participate in the care of your patient.
== END 2021-07-08 22:45 | disposition home or self-care (01) ==
LOC: VM.ED 20:42
DX: R53.1 Weakness (principal); N30.01 Acute cystitis with hematuria; M25.511 Pain in right shoulder; I10 Essential (primary) hypertension; E78.00 Pure hypercholesterolemia, unspecified; I25.2 Old myocardial infarction; E10.8 Type 1 diabetes mellitus with unspecified complications; Z79.899 Other long term (current) drug therapy; Z88.8 Allergy status to other drugs, medicaments and biological substances
CPT/HCPCS: 36415; 70450; 73030-RT; 80053; 81001; 82947; 84484; 85025; 87086; 87088; 87186; 93005; 93010; 99284; 99285-25; A9270-GY